=== PATIENT | female | born 1990 | race Two or more races ===

== ENCOUNTER 2017-05-25 13:51 | Emergency (ER) | payer OTHER ==
[2017-05-25 13:56] VITALS: BP 134/80; PULSE 88; RESP 18; TEMP 98.4; O2SAT 97
[2017-05-25] MEDS ORDERED: KETOROLAC 30 MG/1 ML SDV IM ONE (14:08)
--- NOTE | 2017-05-25 14:23 | EDPHY ---
H & P Time Seen by Provider: 05/25/17 13:59 HPI/ROS: HPI Right lower back pain. 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 She was helping to transfer a patient. She was lifting and pulling this patient in an awkward manner when she felt a sudden pull in her right lower back. She presents to the emergency department complaining of right lower back pain with radiation into the right buttock. She denies any bowel or bladder incontinence. There is no history of significant trauma or fall. No history of malignancy. No fever. She denies any loss of sensation or weakness in her lower extremities. She has no other complaint. She reports that she has had chronic right lower back pain with some associated sciatica for 1-2 years now. She last injured this area of her lower back about 6 months ago and she is still undergoing physical therapy for it. ROS: Constitutional: No fever, no chills. No weakness. Gastrointestinal: No abdominal pain, no vomiting, no diarrhea. Musculoskeletal: As above. No neck pain. No extremity pain. Skin: No rashes. Neurological: No headache. No focal weakness or altered sensation. Past medical history: As above. Social history: She is currently breast-feeding. She is here by herself. Nonsmoker. No alcohol. Physical Exam: General Appearance: Alert, no distress. This patient is responding to questions appropriately and in full sentences. This patient appears well- hydrated and well-nourished. Lower back exam: No midline thoracic, lumbar, sacral tenderness on palpation. She has vague tenderness on palpation over the upper sacroiliac area on the right side and paraspinal musculature on the right side adjacent to L3 and L4. No associated soft tissue erythema, warmth, edema, ecchymosis noted. She has a negative same side and cross side straight leg raise test. She is neurologically intact in all myotomes in dermatomes of the bilateral lower extremities. Neurological: Motor sensory function is grossly intact. Cranial nerves are normal. She is able to ambulate with an antalgic gait favoring her right lower back. Skin: Warm and dry, no rashes. Musculoskeletal: Neck is supple and nontender. Extremities are symmetrical. All joints range without pain or impingement. Psychiatric: No agitation. No depression. Database: EKG: Imaging: Procedures: Emergency department course: Vital signs reviewed and are normal. I discussed medication options with her. Because of her breast-feeding I explained I would not want to give her narcotics. She said that she has store breast milk at home and would be able to pump and dump for a few days. We agreed on intramuscular Toradol for treatment in the emergency department. She reports that she thinks she may have had some tightness in her chest and upper abdomen associated with Toradol in the past but is not sure if this was the cause. She does not have a significant allergic history to ibuprofen or like medications. After discussing the various risks we agreed to treat her with intramuscular Toradol in the emergency department. She has no history of peptic ulcer disease. No history of renal dysfunction. Plan will be to discharge her home with a prescription for Flexeril. This is a category B medication. She will pump and dump for the next couple of days and then resume breast-feeding when her back pain is better. Follow-up with [facility] was discussed with her. Return to emergency department precautions reviewed. All of her questions were answered. She was discharged in good condition. Differential Diagnosis: The differential diagnosis on this patient includes but is not limited to sacroiliac strain, sciatica. Epidural compression syndrome, acute radiculopathy , fracture, subluxation, dislocation, malignancy, AAA, epidural abscess unlikely. This represents a partial list of diagnoses considered. These considerations are based on history, physical exam, past history, reassessment and diagnostic testing. Smoking Status: Never smoked Constitutional: Initial Vital Signs Temperature (C) 36.9 C 05/25/17 13:53 Heart Rate 88 05/25/17 13:53 Respiratory Rate 18 05/25/17 13:53 Blood Pressure 134/80 H 05/25/17 13:53 O2 Sat (%) 97 05/25/17 13:53 O2 Delivery Mode Room Air Allergies/Adverse Reactions: ketorolac tromethamine [From Toradol] Allergy (Intermediate, Verified 08/16/16 14:57) chest pain Penicillins Allergy (Verified 08/16/16 14:57) Home Medications: Medication Instructions Recorded 08/16/16 Cyclobenzaprine [Flexeril 10 MG 10 mg PO TID #9 tab 05/25/17 (*)] Departure - Departure Disposition: Home, Routine, Self-Care Clinical Impression: Lower back pain Condition: Good Instructions: Low Back Strain (ED), Acute Low Back Pain (ED) Additional Instructions: Read and follow provided instructions. Follow-up with your primary care physician or Oanh Ingram in 2-3 days for re- evaluation and further management as needed. Take medication as prescribed only. Pump and dump until off of medications for 24 hours. Return to the emergency department for worsening pain, loss of sensation or weakness in lower extremities, bowel or bladder incontinence, fever or other serious concerns. Referrals: Oanh Ingram [Outside] - As per Instructions Prescriptions: Cyclobenzaprine [Flexeril 10 MG (*)] 10 mg PO TID #9 tab
== END 2017-05-25 14:36 | disposition home or self-care (01) ==
DX: S39.92XA Unspecified injury of lower back, initial encounter (principal); X50.0XXA Overexertion from strenuous movement or load, initial encounter; Y92.69 Other specified industrial and construction area as the place of occurrence of the external cause; Y99.0 Civilian activity done for income or pay; Y93.89 Activity, other specified
CPT/HCPCS: J1885

== ENCOUNTER 2018-01-10 16:30 | Emergency (ER) | payer OTHER ==
[2018-01-10] MEDS ORDERED: NS 1,000 ML IV ONE (17:01)
[2018-01-10] MEDS ORDERED: KETOROLAC 30 MG/1 ML SDV IVP ONE (17:01)
[2018-01-10] MEDS ORDERED: ONDANSETRON 4 MG/2 ML VIAL IVP ONE (17:01)
--- NOTE | 2018-01-10 17:05 | EDPHY ---
H & P Time Seen by Provider: 01/10/18 16:41 HPI/ROS: Chief complaint. Abdominal pain HPI. 27-year-old female with right lower abdominal pain that started this morning. She woke with diarrhea and then developed right-sided abdominal pain. Radiates through to her back. Seems to be gradually worsening. Nausea but no vomiting. No further diarrhea. Bearing down hurts. No fever. 2 weeks ago patient was diagnosed with mesenteric adenitis. She has a history of pancreatitis and has had a cholecystectomy. No chest discomfort or trouble breathing. No fever. ROS Constitutional. no fever/chills, no weakness Eyes. no problems with vision ENT. no sore throat, no nasal drainage Cardiovascular. no chest pain Respiratory. no shortness of breath, no cough Abdominal. Lower right abdominal pain with nausea and diarrhea . no problems urinating MS. no calf pain/swelling, no neck/back pain, no joint pain Skin. no rash Lymph. no swollen glands Neuro. no headache, no dizziness, no difficulty walking or with speech Past Medical/Surgical History: Cholecystectomy, pancreatitis, chronic back pain, mesenteric adenitis, kidney stones Social History: Single, nonsmoker, no alcohol Smoking Status: Never smoked Physical Exam: General Appearance: Alert well-developed female mild distress vital signs are stable Eyes: Pupils equal and round no pallor or injection. ENT, Mouth: Mucous membranes are moist. Respiratory: There are no retractions, lungs are clear to auscultation. Cardiovascular: Regular rate and rhythm. Gastrointestinal: Abdomen is soft with tenderness to palpation right lower quadrant at McBurney's point as well as right adnexal area. Normal bowel sounds. No masses. Neurological: Awake and alert, sensory and motor exams grossly normal. Skin: Warm and dry, no rashes. Musculoskeletal: Neck is supple nontender. Extremities symmetrical, full range of motion. Psychiatric: Patient is oriented X 3, there is no agitation. Constitutional: Initial Vital Signs Temperature (C) 37.1 C 01/10/18 16:35 Heart Rate 101 H 01/10/18 16:35 Respiratory Rate 16 01/10/18 16:35 Blood Pressure 112/55 L 01/10/18 16:35 O2 Sat (%) 100 01/10/18 16:35 O2 Delivery Mode Room Air Allergies/Adverse Reactions: ketorolac tromethamine [From Toradol] Allergy (Verified 06/27/16 18:27) Penicillins Allergy (Verified 08/16/16 14:57) Home Medications: Medication Instructions Recorded Vit27&Calcium/Iron/FA 1 tab PO DAILY 06/27/16 [] NK [No Known Home Meds] 01/10/18 Medical Decision Making Procedures: IV normal saline. 1 L of saline ordered. Zofran for nausea. Toradol for pain. ED Course/Re-evaluation: On re-evaluation patient stable though she continues to have right lower quadrant abdominal pain and adnexal pain. Patient and I have discussed labs and imaging studies. We discussed treatment plan including recommendation for coordinate measuring machine operator consult. Patient expresses understanding and agreement I consulted discussed case with Dr. Neely for OBGYN who sees the patient in the emergency department Differential Diagnosis: I considered ovarian cyst, appendicitis, the ectopic . Patient has an elevated quantitative HCG of 4200 and we should be able to see a in the uterus. We do not see any intrauterine . I feel this is likely ectopic - Data Points Laboratory Results: Laboratory Results 01/10/18 16:50 01/10/18 16:50 Medications Given: Discontinued Medications Diphenhydramine HCl (Benadryl Injection) 12.5 mg IVP EDNOW ONE Stop: 01/10/18 18:33 Last Admin: 01/10/18 18:41 Dose: 12.5 mg Hydromorphone HCl (Dilaudid) 0.5 mg IVP EDNOW ONE Stop: 01/10/18 17:57 Last Admin: 01/10/18 17:59 Dose: 0.5 mg Sodium Chloride (Ns) 1,000 mls @ 0 mls/hr IV EDNOW ONE; Wide Open PRN Reason: Protocol Stop: 01/10/18 17:02 Last Admin: 01/10/18 17:11 Dose: 1,000 mls Ketorolac Tromethamine (Toradol) 30 mg IVP EDNOW ONE Stop: 01/10/18 17:02 Last Admin: 01/10/18 17:11 Dose: 30 mg Ondansetron HCl (Zofran) 4 mg IVP EDNOW ONE Stop: 01/10/18 17:02 Last Admin: 01/10/18 17:11 Dose: 4 mg Departure - Departure Disposition: Home, Routine, Self-Care Clinical Impression: Abdominal pain Qualifiers: Abdominal location: right lower quadrant Qualified Code(s): R10.31 - Right lower quadrant pain Ectopic Qualifiers: Location of ectopic : unspecified location Intrauterine status: without intrauterine Qualified Code(s): O00.90 - Unspecified ectopic without intrauterine Condition: Good Instructions: (ED) Additional Instructions: Follow-up with Dr. Neely per her instructions. Return for worsening symptoms. Referrals: Roxy Neely MD [Medical Doctor] - As per Instructions NONE *PRIMARY CARE P,. [Primary Care Provider] - As per Instructions
[2018-01-10 17:09] LABS: PLATELET COUNT 234 10^3/uL (150-400)
[2018-01-10] MEDS ORDERED: HYDROmorphONE/DILAUDID 2 MG/ML INJ IVP ONE (17:56)
--- NOTE | 2018-01-10 20:32 | PDCONSULT ---
Want Ad Supervisor Note: 27 yo S1 presented to ED with abdominal pain. Pt with hx of intermittent abd pain over the past 2 weeks. She has a 14 month old who she is 5-6 times per day. She has not had a period since . She has been on the minipill reliably (taking the same time every day), and had a little spotting about 2 weeks ago. She had a Nexplanon placed on 12/23/17, uncomplicated. She had the onset of severe abdominal pain and was seen in another ED, had a negative test and had a CT done and was diagnosed with mesenteric adenitis. Since then, she has had intermittent abd pain. This morning, she had diarrhea, which was unusual. 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 Currently still has some discomfort, but no longer in pain after receiving Toradol and Dilaudid in the ED. Sexually active in a monogamous relationship with boyfriend who is the father of her 14 month old. Had negative STD during , and no other partners since then. undesired and unplanned, but would be accepted. PMH: Chlamydia at age 17 PSH: Shelia'scopbill cholecystectomy 2013 Medications: none Allergies: PCN Fam Hx: Father - hypothyroidism POB: [birth year] - at 39 wk hx of two 6 week SABs - no D&Cs O: VSS afeb 37.1 96 117/71 gen - pleasant, NAD CV - RRR chest - CTAB abd - soft, flat, + NABS, mild tenderness in RLQ, no rebound or guarding ext - calves NT, no LE edema pelvic - normal external female genitalia vagina - pink, no lesions, normal white dc cervix - no lesions, no CMT uterus - AV, small, nontender adnexa - no masses palpable, diffuse tenderness bilaterally Labs reviewed: Allergy/AdvReac Type Severity Reaction Status Date / Time Penicillins Allergy Verified 08/16/16 14:57 Temp Pulse Resp BP Pulse Ox 37.1 C 96 18 117/71 96 01/10/18 16:35 01/10/18 19:15 01/10/18 19:15 01/10/18 19:15 01/10/18 19:15 WBC 6.40 10^3/uL (3.80-9.50) 01/10/18 16:50 RBC 4.28 10^6/uL (4.18-5.33) 01/10/18 16:50 Hgb 13.1 g/dL (12.6-16.3) 01/10/18 16:50 Hct 38.5 % (38.0-47.0) 01/10/18 16:50 MCV 90.0 fL (81.5-99.8) 01/10/18 16:50 MCH 30.6 pg (27.9-34.1) 01/10/18 16:50 MCHC 34.0 g/dL (32.4-36.7) 01/10/18 16:50 RDW 13.0 % (11.5-15.2) 01/10/18 16:50 Plt Count 234 10^3/uL (150-400) 01/10/18 16:50 MPV 10.6 fL (8.7-11.7) 01/10/18 16:50 Neut % (Auto) 56.9 % (39.3-74.2) 01/10/18 16:50 Lymph % (Auto) 36.1 % (15.0-45.0) 01/10/18 16:50 [place] % (Auto) 5.6 % (4.5-13.0) 01/10/18 16:50 Eos % (Auto) 0.6 % (0.6-7.6) 01/10/18 16:50 Baso % (Auto) 0.6 % (0.3-1.7) 01/10/18 16:50 Nucleat RBC Rel Count 0.0 % (0.0-0.2) 01/10/18 16:50 Absolute Neuts (auto) 3.64 10^3/uL (1.70-6.50) 01/10/18 16:50 Absolute Lymphs (auto) 2.31 10^3/uL (1.00-3.00) 01/10/18 16:50 Absolute Monos (auto) 0.36 10^3/uL (0.30-0.80) 01/10/18 16:50 Absolute Eos (auto) 0.04 10^3/uL (0.03-0.40) 01/10/18 16:50 Absolute Basos (auto) 0.04 10^3/uL (0.02-0.10) 01/10/18 16:50 Absolute Nucleated RBC 0.00 10^3/uL (0-0.01) 01/10/18 16:50 Immature Gran % 0.2 % (0.0-1.1) 01/10/18 16:50 Immature Gran # 0.01 10^3/uL (0.00-0.10) 01/10/18 16:50 Sodium 143 mEq/L (135-145) 01/10/18 16:50 Potassium 4.1 mEq/L (3.3-5.0) 01/10/18 16:50 Chloride 106 mEq/L (97-110) 01/10/18 16:50 Carbon Dioxide 21 mEq/l (22-31) L 01/10/18 16:50 Anion Gap 16 mEq/L (8-16) 01/10/18 16:50 BUN 18 mg/dL (7-23) 01/10/18 16:50 Creatinine 0.6 mg/dL (0.6-1.0) 01/10/18 16:50 Estimated GFR > 60 01/10/18 16:50 Glucose 70 mg/dL (70-100) 01/10/18 16:50 Calcium 9.2 mg/dL (8.5-10.4) 01/10/18 16:50 Lipase 188 IU/L (23-300) 01/10/18 16:50 Beta HCG, Qual POSITIVE 01/10/18 20:10 Beta HCG, Quant 4270.60 mIU/mL (0.00-4.83) H 01/10/18 16:50 Urine Color YELLOW 01/10/18 19:30 Urine Appearance HAZY 01/10/18 19:30 Urine pH 5.0 (5.0-7.5) 01/10/18 19:30 Ur Specific Lovely 1.030 (1.002-1.030) 01/10/18 19:30 Urine Protein NEGATIVE (NEGATIVE) 01/10/18 19:30 Urine Ketones 1+ (NEGATIVE) H 01/10/18 19:30 Urine Blood NEGATIVE (NEGATIVE) 01/10/18 19:30 Urine Nitrate NEGATIVE (NEGATIVE) 01/10/18 19: Urine Bilirubin NEGATIVE (NEGATIVE) 01/10/18 19:30 Urine Urobilinogen NEGATIVE EU (0.2-1.0) 01/10/18 19:30 Ur Leukocyte Esterase NEGATIVE (NEGATIVE) 01/10/18 19:30 Urine RBC 1-3 /hpf (0-3) 01/10/18 19:30 Urine WBC 1-3 /hpf (0-3) 01/10/18 19:30 Ur Epithelial Cells TRACE /lpf (NONE-1+) 01/10/18 19:30 Urine Mucus 3+ /lpf (NONE-1+) H 01/10/18 19:30 Urine Glucose NEGATIVE (NEGATIVE) 01/10/18 19:30 US images reviewed with statement clerks manager, and with Dr. Germain, radiologist - empty uterus with thin stripe, trace free fluid in cul de sac, bilateral ovaries appear normal, no suggestion of ectopic , or intrauterine IMP:27 yo S2 with a of unknown location. blood draw repeated to confirm pos preg test - repeat qual hcg positive. Plan: Strict ectopic precautions reviewed. Will dc home. To call [facility] on Friday morning - in 2 days, to get pelvic ultrasound appointment for the afternoon, followed by an appointment with me to follow. She is to get her blood drawn at noon for a repeat quant hcg to determine a trend. Discussed l'scopy, and methotrexate treatment for possible ectopic , but agreed need more than one data point to determine normal (but unable to visualize yet - which is odd since hcg > 3000) vs abnormal (ectopic, blighted ovum, SAB in process) . >45 min spent, with > 50% in face to face. Roxy Neely MD, [facility]
[2018-01-10 21:04] VITALS: BP 111/76
== END 2018-01-10 21:04 | disposition home or self-care (01) ==
DX: R10.31 Right lower quadrant pain (principal); E86.9 Volume depletion, unspecified; Z90.49 Acquired absence of other specified parts of digestive tract
CPT/HCPCS: 96374; J1170; J1200; J1885; J2405

== ENCOUNTER 2018-01-20 19:01 | Observation (INO) | payer OTHER ==
[2018-01-20] MEDS ORDERED: ONDANSETRON 4 MG/2 ML VIAL IVP PRN (20:09)
[2018-01-20 20:46] LABS: PLATELET COUNT 209 10^3/uL (150-400)
[2018-01-20] MEDS ORDERED: METHOTREXATE 25 MG/ML SYRINGE IM ONE (22:12)
[2018-01-20] MEDS ORDERED: HYDROCODONE/APAP 5/325 TAB PO PRN (22:14)
--- NOTE | 2018-01-20 23:13 | GHP ---
[f rep st] PREOP HISTORY AND PHYSICAL DATE OF ADMISSION: 01/20/2018 PRESENTATION DIAGNOSIS: Ectopic within inadequate response to initial dose of methotrexate . HISTORY OF PRESENT ILLNESS: The patient is a 27-year-old 4, para 0-0-2-0, who had a last men strual period of 12/18/2017, and was diagnosed with an ectopic on 01/12/2018. She had init ially been seen in the [facility] Emergency Room with right lower quadrant pain, was found to have a normal appendix, a normal ultrasound, but a positive test. She had beta hCGs followed and had an inadequate rise in her hCGs. She received methotrexate on 01/12/2018, and her hCG at that point was 2824. She had other normal labs and was feeling well in general. On her day 4, labs charla to 3458, w hich is a known possible side effect of a transient increase, but a calculated 15% decrease was 2940. She had repeat labs drawn on the and she had an inadequate decrease to 3342. When I called he r to explain that her beta hCG had not decreased sufficiently, the patient had complained of persiste nt right lower quadrant pain which was a dull pain that was a constant 5/10, with some episodes of sh shana pain that brought tears to her eyes, especially with bowel movements. She denied lightheadedness or dizziness, but had a constant right lower quadrant pain, so we brought her in for observation and evaluation. Upon evaluation, her vital signs are stable, she is afebrile. She had labs checked anusha t were also stable. Her white blood cell count was 5.64, hemoglobin 12.7, hematocrit 38.4, platelets were 209. Chemistry panel was normal. Her beta hCG had dropped now to 2873.3. OBJECTIVE: GENERAL: Upon examination, she is a well-developed, well-nourished white female in no ac nikolai distress. LUNGS: Clear to auscultation bilaterally. HEART: Regular rate and rhythm. No murmu r. ABDOMEN: Soft, nondistended. She has moderate tenderness to deep palpation of the right lower q uadrant and some rebound tenderness. PELVIC: Normal external genitalia. Normal parous cervix. Jovani e uterine tenderness and right lower quadrant tenderness. A palpable fullness in the right adnexa, n othing in the left. Repeat pelvic ultrasound was performed, which showed that there was a complex cystic lesion superior to and separate from the right ovary that measured 3 x 2 x 2 cm. There was some mild mural vasculari ty, but not a viable gestational pole. There was a corpus luteum cyst on the right, a simple cyst on the left. There was no free fluid in the cul-de-sac. This is roughly the same size as the mass anusha t was that was visualized on the ultrasound on the . ASSESSMENT AND PLAN: Because the patient's hCG had dropped, her ultrasound is stable, she has no patty e fluid in the pelvis, and she has a stable hematocrit, I do not feel that she has a ruptured ectopic and I feel that she is a candidate for repeat dose of methotrexate and the patient is in agreement. She will receive methotrexate here at 50 mg/sq m with a calculated dose of 81 mg IM. She will disch arge home with another repeat quantitative beta hCG at day 4 and day 7. She is to call with increasi ng pain, nausea, vomiting, severe syncopal episodes, or any other complaints. /[id number]/MODL
== END 2018-01-20 23:22 | disposition home or self-care (01) ==
LOC: FLD 19:01
PROVIDERS: ADMIT Obstetrics & Gynecology; ATTEND Obstetrics & Gynecology
PROC: 3E023GC Introduction of Other Therapeutic Substance into Muscle, Percutaneous Approach (ICD-10-PCS; principal; 2018-01-20)
DX: O00.80 Other ectopic pregnancy without intrauterine pregnancy (principal); R10.31 Right lower quadrant pain; N83.201 Unspecified ovarian cyst, right side; N83.292 Other ovarian cyst, left side
CPT/HCPCS: 76801; 96372; G0378; J2405; J9250